=== PATIENT | female | born 1970 | race Caucasian/White ===

== ENCOUNTER → 2018-02-10 | Outpatient (CLI) | payer OTHER ==
[~2018-02-10] MED LIST: ACETAMINOPHEN325 M1 PO; ACID REDUCER200 MG PO; ADVAIR HFA115 MCG/21 INH; FLONASE 0.05%50 MCG NASAL; IBUPROFEN 400400 M2 PO; NAPROXEN 500MG500 MG PO; NOHOMEMEDICATIONS; SPRINTEC1 EACH PO; WELLBUTRIN 100100 MG PO; ZYRTEC10 M5 PO
== END ==
LOC: M.RAD 15:57
DX: M48.02 Spinal stenosis, cervical region (principal); Z98.1 Arthrodesis status

== ENCOUNTER → 2021-07-18 | Outpatient (CLI) | payer OTHER | LOC: M.RAD 16:38 | PROVIDERS: ATTEND Family Medicine | DX: J84.10 Pulmonary fibrosis, unspecified (principal); J98.4 Other disorders of lung; J45.30 Mild persistent asthma, uncomplicated; Z72.0 Tobacco use ==